=== PATIENT | female | born 1965 | race Caucasian/White ===

== ENCOUNTER 2023-07-21 12:24 | Emergency (ER) | payer BC ==
[2023-07-21] MEDS: cefTRIAXone 1 GM Vial IM ONE (12:43)
[2023-07-21] MEDS: methylPREDNISolone Acetate 80 MG/ML SDV IM ONE (12:43)
[2023-07-21] MEDS ORDERED: Ondansetron 4 MG Tab.DIS ONE (12:49)
[2023-07-21] MEDS: Take Home: Ondansetron 4 MG Tab.DIS, 2 Tab Pack PO ONE (12:50)
== END 2023-07-21 12:53 | disposition home or self-care (01) ==
LOC: CC.ED 12:24
DX: J01.00 Acute maxillary sinusitis, unspecified (principal); E03.9 Hypothyroidism, unspecified; Z79.899 Other long term (current) drug therapy; Z88.0 Allergy status to penicillin; Z88.1 Allergy status to other antibiotic agents; Z88.2 Allergy status to sulfonamides; Z88.5 Allergy status to narcotic agent
CPT/HCPCS: 96372; 99283; A9270-GY; J0696; J1040